=== PATIENT | male | born 1985 | race Caucasian/White ===

== ENCOUNTER 2018-12-04 13:58 | Emergency (ER) | payer SELFPAY ==
[~2018-12-04] VITALS: Ht 182.9 cm; Wt 97.5 kg
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
--- NOTE | 2018-12-04 14:48 | RAD ---
KNEE RIGHT 3V History: Trauma. Pain. Technique: 3 views right knee Comparison: None. Findings: Normal alignment. No fracture. Minimal knee joint effusion. Soft tissues unremarkable. Minimal patellar spurring. Impression: 1. No acute osseous abnormality. Electronically signed by: Brandin Holland DO (12/04/2018 2:45 PM) [id number]
[2018-12-04] MEDS ORDERED: MELO7.5T29 PO (14:49)
[2018-12-04 15:09] VITALS: BP 124/85
== END 2018-12-04 15:09 | disposition home or self-care (01) ==
LOC: ER 14:07
DX: S70.11XA Contusion of right thigh, initial encounter (principal); F17.210 Nicotine dependence, cigarettes, uncomplicated; Z88.8 Allergy status to other drugs, medicaments and biological substances; X50.9XXA Other and unspecified overexertion or strenuous movements or postures, initial encounter; Y93.89 Activity, other specified; Y92.89 Other specified places as the place of occurrence of the external cause; Y99.8 Other external cause status
CPT/HCPCS: 29505; 73562; 99284

== ENCOUNTER 2020-02-05 19:04 | Emergency (ER) | payer SELFPAY ==
[~2020-02-05] VITALS: Ht 182.9 cm; Wt 113.0 kg
[~2020-02-05 19:04] MED LIST: MELO7.5T29 PO
[2020-02-05] MEDS ORDERED: ASPIRIN CHEWABLE 81 MG TABLET. PO ONE (19:15)
--- NOTE | 2020-02-05 19:21 | PHYS DOC ---
Past History Past Medical History: No Pertinent History, Other Additional Past Medical Histor: torn midiscus right knee Past Surgical History: No Surgical History Smoking: Cigarettes Alcohol Use: None Drug Use: Marijuana Adult General Chief Complaint Chief Complaint: CHEST PAIN HPI HPI Patient is a 35-year-old male complaining of palpitations. 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 Nothing known makes better or worse. Patient denies any pain but admits generalized chest tightness and inability to catch a deep breath. Timing of symptoms has been constant since onset. Associated symptoms include lightheadedness, bilateral upper extremity numbness, and nausea. Patient denies any fever, known COVID-19 contact, URI-like symptoms or other recent febrile illness, chest pain, cough, abdominal pain, vomiting or diarrhea, no urinary and/or bowel complaints. Patient denies any alcohol use but admits smoking cigarettes and marijuana regularly, no other illicit drug abuse reported. Does not have any known medical illnesses, does not take any daily medications, no history of cardiac abnormalities. Admits positive family history of cardiac disease but denies any known congenital cardiac abnormalities or passing out during exertion/physical activity. Has history of panic attacks and feels like this could be similar to last episodes Review of Systems Review of Systems Fourteen body systems of review of systems have been reviewed. See HPI for pertinent positives and negative responses, other scherer all other systems are negative, non-pertinent or non-contributory Allergies Allergies Allergies Coded Allergies Type Severity Reaction Last Updated Verified Iodine and Iodide Containing Produc Allergy Unknown 12/04/18 Yes Physical Exam Physical Exam Constitutional: Well developed, well nourished, no acute distress, non-toxic appearance. HENT: Normocephalic, atraumatic, bilateral external ears normal, oropharynx moist, no oral exudates, nose normal. Eyes: PERRLA, EOMI, conjunctiva normal, no discharge. Neck: Normal range of motion, no tenderness, supple, no stridor. Cardiovascular: Heart rate regular, sinus rhythm, no murmurs rubs or gallops Lungs & Thorax: Bilateral breath sounds clear to auscultation Abdomen: Bowel sounds normal, soft, no tenderness, no masses, no pulsatile masses. Nonsurgical abdomen, no peritoneal signs Skin: Warm, dry, no erythema, no rash. Back: No tenderness, no CVA tenderness. Extremities: No tenderness, no cyanosis, no clubbing, ROM intact, no edema. Neurologic: Alert and oriented X 3, grossly normal motor & sensory function, no focal deficits noted. Psychologic: Affect normal, judgement normal, mood normal. Current Patient Data Vital Signs Vital Signs Date Time Temp Pulse Resp B/P (MAP) Pulse Ox O2 Delivery O2 Flow Rate FiO2 02/05/20 19:48 98.3 71 54 123/86 (98) 97 Room Air Lab Results Laboratory Tests Test 02/05/20 19:15 White Blood Count 7.9 x10^3/uL (4.0-11.0) Red Blood Count 5.23 x10^6/uL (4.30-5.70) Hemoglobin 15.4 g/dL (13.0-17.5) Hematocrit 45.8 % (39.0-53.0) Mean Corpuscular Volume 88 fL (79-100) Mean Corpuscular Hemoglobin 30 pg (25-35) Mean Corpuscular Hemoglobin Concent 34 g/dL (31-37) Red Cell Distribution Width 14.1 % (11.5-14.5) Platelet Count 302 x10^3/uL (140-400) Neutrophils (%) (Auto) 50 % (31-73) Lymphocytes (%) (Auto) 38 % (24-48) Monocytes (%) (Auto) 9 % (0-9) Eosinophils (%) (Auto) 2 % (0-3) Basophils (%) (Auto) 0 % (0-3) Neutrophils # (Auto) 4.0 x10^3uL (1.8-7.7) Lymphocytes # (Auto) 3.0 x10^3/uL (1.0-4.8) Monocytes # (Auto) 0.7 x10^3/uL (0.0-1.1) Eosinophils # (Auto) 0.2 x10^3/uL (0.0-0.7) Basophils # (Auto) 0.0 x10^3/uL (0.0-0.2) Bedside Venous pH 7.51 (7.32-7.42) Bedside Venous pCO2 28 mmHg (41-51) Bedside Venous pO2 57 mmHg (20-40) Venous Blood HCO3 22 mmol/L (24-28) POC Venous O2 Saturation (Jess) 92 % Bedside FiO2 21 Sodium Level 136 mmol/L (136-145) Potassium Level 3.6 mmol/L (3.5-5.1) Chloride Level 100 mmol/L (98-107) Carbon Dioxide Level 24 mmol/L (21-32) Anion Gap 12 (6-14) Blood Urea Nitrogen 11 mg/dL (8-26) Creatinine 0.9 mg/dL (0.7-1.3) Estimated GFR (Cockcroft-Gault) 95.5 BUN/Creatinine Ratio 12 (6-20) Glucose Level 83 mg/dL (70-99) Calcium Level 9.6 mg/dL (8.5-10.1) Total Bilirubin 0.6 mg/dL (0.2-1.0) Aspartate Amino Transf (AST/SGOT) 20 U/L (15-37) Alanine Aminotransferase (ALT/SGPT) 47 U/L (16-63) Alkaline Phosphatase 86 U/L (46-116) Troponin I Quantitative < 0.017 ng/mL (0-0.055) DS-Imn-J-Type Natriuretic Peptide 9 pg/mL (0-124) Total Protein 8.3 g/dL (6.4-8.2) Albumin 3.9 g/dL (3.4-5.0) Albumin/Globulin Ratio 0.9 (1.0-1.7) EKG EKG EKG ordered and interpreted by myself at 1909 hrs. as sinus rhythm at 76 bpm, unremarkable intervals, no axis deviation, no fascicular blocks or other ischemic signs, no STEMI Radiology/Procedures Radiology/Procedures PROCEDURE: PORTABLE CHEST 1V Exam: Chest one view INDICATION: Palpitations TECHNIQUE: Frontal view of the chest Comparisons: None FINDINGS: The cardiomediastinal silhouette and pulmonary vessels are within normal limits. The lung and pleural spaces are clear. IMPRESSION: No acute cardiopulmonary process. Electronically signed by: Meena Johnson MD (02/05/2020 7:46 PM) [facility] Heart Score HEART Score for Chest Pain: HEART Score for Chest Pain Response (Comments) Value History Slighlty/Non-Suspicious 0 ECG Normal 0 Age < 45 0 Risk Factors 1 or 2 Risk Factors 1 Troponin < Normal Limit 0 Total 1 Risk Factors: Risk Factors: DM, Current or recent (<one month) smoker, HTN, HLP, family history of CAD, obesity. Risk Scores: Risk Factors: DM, Current or recent (<one month) smoker, HTN, HLP, family history of CAD, obesity. Course & Med Decision Making Course & Med Decision Making Pertinent Labs and Imaging studies reviewed. (See chart for details) Discussed most likely diagnosis of anxiety attack versus atypical chest pain. After extensive work-up, I do not feel there are any emergent and/or surgical findings today which require further work-up and/or admission Patient monitored while in ER, tolerated ER work-up and intervention. Patient completely asymptomatic for greater than 1 hour prior to discussing disposition options with him I did disclose to patient this might be an acute presentation of more concerning pathology and as such, I reiterated importance of outpatient follow-up Patient does not have primary care physician at this time, I educated him on local resources and gave him the attached pamphlet of local providers who are accepting new patients for him to review and establish with Strict return precautions were discussed with good understanding by patient, all questions and concerns addressed prior to ER departure in improved condition Dragrafael Disclaimer Dragrafael Disclaimer This electronic medical record was generated, in whole or in part, using a voice recognition dictation system. PERC Rule for PE PERC Rule for PE Response (Comments) Value Age > 50: No 0 HR > 100: No 0 Sa02 on room air <95%: No 0 Unilateral leg swelling: No 0 Hemoptysis: No 0 Recent surgery or trauma: No 0 Prior PE or DVT: No 0 Hormone use: No 0 Total 0 Departure Departure: Impression: Primary Impression: Panic attack Disposition: 01 DC HOME SELF CARE/HOMELESS Condition: IMPROVED Referrals: PCP,NO (PCP) Patient Instructions: Anxiety and Panic Attacks, Chest Pain (Nonspecific) Additional Instructions: You have been evaluated in the Emergency Department today for anxiety/panic attack/atypical chest pain. Your evaluation was not suggestive of any emergent condition requiring medical intervention at this time. However, some problems make take more time to appear. Therefore, it is important for you to watch for any new symptoms or worsening of your current condition. Please utilize attached resource list of local primary care physicians to call and schedule outpatient follow-up within upcoming 1 to 14 days after ER departure Return to the Emergency Department if you experience worsening pain, persistent fevers greater than 100.4, recurrent vomiting, blood in vomit, blood in stool, dark tarry stool, chest pain, difficulty breathing, or any other concerning sym ptoms. JULIETTE SHANKAR DO Feb 05, 2020 19:21
[2020-02-05 19:39] LABS: BASO % 0 % (0-3); EOS # 0.2 x10^3/uL (0.0-0.7); EOS % 2 % (0-3); HEMATOCRIT 45.8 % (39.0-53.0); HEMOGLOBIN 15.4 g/dL (13.0-17.5); LYMPH % 38 % (24-48); MEAN CORPUSCULAR HEMOGLOBIN 30 pg (25-35); MEAN CORPUSCULAR HGB CONC 34 g/dL (31-37); MEAN CORPUSCULAR VOLUME 88 fL (79-100); MONO # 0.7 x10^3/uL (0.0-1.1); MONO % 9 % (0-9); NEUT % 50 % (31-73); PLATELET COUNT 302 x10^3/uL (140-400); RED BLOOD COUNT 5.23 x10^6/uL (4.30-5.70); RED CELL DISTRIBUTION WIDTH 14.1 % (11.5-14.5); WHITE BLOOD COUNT 7.9 x10^3/uL (4.0-11.0)
[2020-02-05 19:48] VITALS: BP 123/86
--- NOTE | 2020-02-05 19:48 | RAD ---
Exam: Chest one view INDICATION: Palpitations TECHNIQUE: Frontal view of the chest Comparisons: None FINDINGS: The cardiomediastinal silhouette and pulmonary vessels are within normal limits. The lung and pleural spaces are clear. IMPRESSION: No acute cardiopulmonary process. Electronically signed by: Meena Johnson MD (02/05/2020 7:46 PM) [facility]
[2020-02-05 19:49] LABS: CALCIUM 9.6 mg/dL (8.5-10.1); CREATININE 0.9 mg/dL (0.7-1.3); GFR 95.5; POTASSIUM 3.6 mmol/L (3.5-5.1)
[2020-02-05 20:02] LABS: ALBUMIN 3.9 g/dL (3.4-5.0); ALBUMIN/GLOBULIN RATIO 0.9 (1.0-1.7); TOTAL BILIRUBIN 0.6 mg/dL (0.2-1.0); TOTAL PROTEIN 8.3 g/dL (6.4-8.2)
--- NOTE | 2020-02-05 20:31 | EKG ---
[address] [address] Test Date: 2020-02-05 Test Time: 19:07:53 Pat Name: SHERLEY KING Department: Room: Gender: M [employer]enting Machine Operator: : 1985 Requested By: JULIETTE SHANKAR Order Number: [id number] Reading MD: Measurements Intervals [place]rett Rate: 76 P: 43 LA: 128 QRS: 28 QRSD: 98 T: 32 QT: 352 QTc: 400 Interpretive Statements SINUS RHYTHM NORMAL ECG RI6.02 No previous ECG available for comparison
== END 2020-02-05 20:30 | disposition home or self-care (01) ==
LOC: ER 19:04
DX: F41.0 Panic disorder [episodic paroxysmal anxiety] (principal); F17.210 Nicotine dependence, cigarettes, uncomplicated; F12.10 Cannabis abuse, uncomplicated; Z88.8 Allergy status to other drugs, medicaments and biological substances
CPT/HCPCS: 36415; 71045; 80053; 82803; 83880; 84484; 85025; 93005; 99285-25

== ENCOUNTER 2020-09-14 16:23 | Emergency (ER) | payer SELFPAY ==
[~2020-09-14] VITALS: Ht 180.3 cm; Wt 97.7 kg
[2020-09-14 16:57] VITALS: BP 133/86
[2020-09-14] MEDS ORDERED: ONDANSETRON ODT 4 MG TAB.RAPDIS PO ONE (17:00)
--- NOTE | 2020-09-14 17:20 | PHYS DOC ---
Past History Past Medical History: No Pertinent History Additional Past Medical Histor: torn midiscus right knee (LUDIN NIEVES APRN) Past Surgical History: No Surgical History (LUDIN NIEVES APRN) Smoking: Cigarettes Alcohol Use: None Drug Use: Marijuana (LUDIN NIEVES APRN) General Adult EDM: Chief Complaint: NAUSEA/VOMITING/DIARRHEA HPI: HPI: Patient is a 35-year-old male who presents with nausea/vomiting/diarrhea since 10 AM this morning. Patient states "yesterday started feeling a little bit congested and I was running a fever". Patient is afebrile on arrival. Denies taking thing for fever. States "my fianc the same symptoms". Patient denies abdominal pain. Denies health history. (LUDIN NIEVES APRN) Review of Systems: Review of Systems: Constitutional: Denies fever or chills Eyes: Denies change in visual acuity HENT: Denies nasal congestion or sore throat Respiratory: Denies cough or shortness of breath Cardiovascular: Denies chest pain or edema GI: Denies abdominal pain. Reports nausea/vomiting/diarrhea : Denies dysuria Musculoskeletal: Denies back pain or joint pain Integument: Denies rash Neurologic: Denies headache, focal weakness or sensory changes Endocrine: Denies polyuria or polydipsia Lymphatic: Denies swollen glands Psychiatric: Denies depression or anxiety (LUDIN NIEVES APRN) Current Medications: Current Meds: Current Medications Medications (Trade) Dose Ordered Sig/Amrit Start Time Stop Time Status Last Admin Dose Admin Ondansetron HCl (Zofran Odt) 4 mg 1X ONCE 09/14/20 17:00 09/14/20 17:01 DC 09/14/20 17:07 4 MG (LUDIN NIEVES APRN) Allergies: Allergies: Allergies Coded Allergies Type Severity Reaction Last Updated Verified Iodine and Iodide Containing Produc Allergy Unknown 12/04/18 Yes (LUDIN NIEVES APRN) Physical Exam: PE: Constitutional: Well developed, well nourished, no acute distress, non-toxic appearance. [] HENT: Normocephalic, atraumatic, bilateral external ears normal, oropharynx moist, no oral exudates, nose normal. [] Eyes: PERRLA, EOMI, conjunctiva normal, no discharge. [] Neck: Normal range of motion, no tenderness, supple, no stridor. [] Cardiovascular:Heart rate regular rhythm, no murmur [] Lungs & Thorax: Bilateral breath sounds clear to auscultation [] Abdomen: Bowel sounds normal, soft, no tenderness, no masses, no pulsatile masses. [] Skin: Warm, dry, no erythema, no rash. [] Back: No tenderness, no CVA tenderness. [] Extremities: No tenderness, no cyanosis, no clubbing, ROM intact, no edema. [] Neurologic: Alert and oriented X 3, normal motor function, normal sensory func tion, no focal deficits noted. [] Psychologic: Affect normal, judgement normal, mood normal. [] (LUDIN NIEVES APRN) EKG: EKG: [] (LUDIN NIEVES APRN) Radiology/Procedures: Radiology/Procedures: [] (LUDIN NIEVES APRN) Heart Score: C/O Chest Pain: No Risk Factors: Risk Factors: DM, Current or recent (<one month) smoker, HTN, HLP, family history of CAD, obesity. Risk Scores: Score 0 - 3: 2.5% MACE over next 6 weeks - Discharge Home Score 4 - 6: 20.3% MACE over next 6 weeks - Admit for Clinical Observation Score 7 - 10: 72.7% MACE over next 6 weeks - Early Invasive Strategies (LUDIN NIEVES APRN) Course & Med Decision Making: Course & Med Decision Making Pertinent Labs and Imaging studies reviewed. (See chart for details) [] 35-year-old male presents with nausea/vomiting/diarrhea since 10 AM. Patient given Zofran. Patient is denying abdominal pain. No indication at this time for CT of abdomen. Patient reports symptoms have improved after Zofran. I am sending patient home with a prescription for Zofran to help with symptoms. Patient is appreciative and okay with discharge plan.. Patient's hemodynamically stable. Patient is requesting a work note. (LUDIN NIEVES APRN) Course & Med Decision Making Did not see or evaluate patient. 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 (DEIDRE LEE MD) Dragon Disclaimer: Dragon Disclaimer: This electronic medical record was generated, in whole or in part, using a voice recognition dictation system. (LUDIN NIEVES APRN) Departure Departure: Impression: Primary Impression: Nausea & vomiting Qualified Codes: R11.2 - Nausea with vomiting, unspecified Disposition: 01 HOME / SELF CARE / HOMELESS Condition: STABLE Referrals: PCP,ASAD (PCP) Patient Instructions: Nausea and Vomiting, [id number] Additional Instructions: You were seen in the emergency room for nausea/vomiting/diarrhea. You were given Zofran in the emergency room which improved your symptoms. I am sending you home with a prescription for Zofran. Please follow-up with your PCP if your symptoms do not improve. Return to the emergency room with worsening symptoms or concerns EMERGENCY DEPARTMENT GENERAL DISCHARGE INSTRUCTIONS Thank you for coming to [facility] (ED) today and trusting us with you care. We trust that you had a positivie experience in our Emergency Department. If you wish to speak to the department management, you may call the director at [phone]. YOUR FOLLOW UP INSTRUCTIONS ARE FOLLOWS: 1. Do you have a private Doctor? If you do not have a private doctor, please ask for a resource list of physicians or clinics that may be able to assist you with follow up care. 2. The Emergency Physician has interpreted your x-rays. The X-Ray specialist will also review them. If there is a change in the findings, you will be notified in 48 hours when at all possible. 3. A lab test or culture has been done, your results will be reviewed and you will be notified if you need a change in treatment. ADDITIONAL INSTRUCTIONS AND INFORMATION: 1. Your care today has been supervised by a physician who is specially trained in emergency care. Many problems require more than one evaluation for a complete diagnosis and treatment. We recommend that you schedule your follow up appointment as recomm ended to ensure complete treatment of you illness or injury. If you are unable to obtain follow up care and continue to have a problem, or if your condition worsens, we recommend that you return to the ED. 2. We are not able to safely determine your condition over the phone nor are we able to give sound medical advice over the phone. For these safety reasons, if you call for medical advice we will ask you to come to the ED for further evaluation. 3. If you have any questions regarding these discharge instructions please call the ED at [phone]. SAFETY INFORMATION: In the interest of safety, wellness, and injury prevention; we encourage you to wear your sealbelt, if you smoke; quite smoking, and we encourage family to use a protective helmet for bicycling and other sporting events that present an increased risk for head injury. IF YOUR SYMPTOMS WORSEN OR NEW SYMPTOMS DEVELOP, OR YOU HAVE CONCERNS ABOUT YOUR CONDITION; OR IF YOUR CONDITION WORSENS WHILE YOU ARE WAITING FOR YOUR FOLLOW UP APPOINTMENT; EITHER CONTACT YOUR PRIMARY CARE DOCTOR, THE PHYSICIAN WHOSE NAME AND NUMBER YOU WERE GIVEN, OR RETURN TO THE ED IMMEDIATELY. Scripts Ondansetron Hcl (ZOFRAN) 4 Mg Tablet 4 MG PO Q8HRS for nausea for 10 Days, #30 TAB Prov: LUDIN NIEVES APRN 09/14/20 LUDIN NIEVES APRN Sep 14, 2020 17:19 DEIDRE LEE MD Sep 14, 2020 23:33
[2020-09-14] MEDS ORDERED: ONDA4TAB7 PO (18:33)
== END 2020-09-14 18:51 | disposition home or self-care (01) ==
LOC: ER 16:23
DX: R11.2 Nausea with vomiting, unspecified (principal); R19.7 Diarrhea, unspecified; F17.210 Nicotine dependence, cigarettes, uncomplicated
CPT/HCPCS: 99283; Q0162